=== PATIENT | female | born 1945 | race Two or more races ===

== ENCOUNTER 2020-05-25 09:09 | Inpatient (IN) | payer OTHER ==
[~2020-05-25] VITALS: Ht 160 cm; Wt 90.5 kg
[2020-05-25] MEDS ORDERED: METOPROLOL TARTRATE 25 MG TAB PO ONE (10:00)
[2020-05-25 10:11] LABS: Basophils # (auto) 0.1 10 ^3/uL (0-0.2); Basophils % (auto) 0.9 % (0.0-2.0); Eosinophils # (auto) 0.1 10 ^3/uL (0-0.8); Eosinophils % (auto) 1.4 % (0.0-7.0); Hematocrit 42.4 % (36.0-46.0); Hemoglobin 14.4 g/dL (12.2-16.2); Lymphocytes % (auto) 15.5 % (10.0-50.0); Mean Corpuscular Hemoglobin 33.1 pg (28.0-32.0); Mean Corpuscular Hgb Conc. 33.9 g/dL (32.0-36.0); Mean Corpuscular Volume 97.6 fL (80.0-100.0); Monocytes # (auto) 0.5 10 ^3/uL (0-1.3); Monocytes % (auto) 8.3 % (0.0-12.0); Neutrophils # (auto) 4.6 10 ^3/uL (1.6-8.6); Neutrophils % (auto) 73.9 % (37.0-80.0); Nucleated Red Blood Cells % 0.2 %; Platelet Count (auto) 285 10^3/uL (140-450); Red Blood Cells 4.34 10^6/uL (4.0-5.20); Red Cell Distribution Width 15.4 % (11.8-14.3); White Blood Cell 6.3 10^3/uL (4.4-10.8)
[2020-05-25 10:34] LABS: Urine Bacteria FEW /hpf (None Seen); Urine Blood Negative /uL (Negative); Urine Specific Gravity 1.005 (1.001-1.035); Urine WBC <1 /hpf (0 - 5)
[2020-05-25 10:35] LABS: INR 1.07 (0.9-1.15); Partial Thromboplastin Time 29.5 sec (23.0-31.2)
[2020-05-25 10:41] LABS: Alanine Aminotransferase 25 U/L (13-56); Albumin 3.8 g/dL (3.4-5.0); Blood Urea Nitrogen 24 mg/dL (7-18); Calcium 9.6 mg/dL (8.5-10.1); Carbon Dioxide 25 mmol/L (21-32); Glucose 137 mg/dL (74-106)
[2020-05-25 10:58] LABS: Alkaline Phosphatase 70 U/L (45-117); Anion Gap 7 (5-15); Aspartate Aminotransferase 21 U/L (15-37); BUN/Creatinine Ratio 22.4; Bilirubin, Total 0.5 mg/dL (0.2-1.0); Chloride 108 mmol/L (98-107); GFR African American 64 mL/min; GFR Non-African American 53 mL/min; Potassium 4.2 mmol/L (3.5-5.1); Sodium 140 mmol/L (136-145); Total Protein 7.3 g/dL (6.4-8.2)
[2020-05-25] MEDS ORDERED: AMIODARONE HCL 150 MG in D5W 5% 100 ML IV ONE (11:15)
[2020-05-25] MEDS ORDERED: AMIODARONE 450mg/250ml AE 250 ML IV SCH (11:15)
[2020-05-25] MEDS ORDERED: AMIODARONE HCL (50 MG/ ML) 3 ML VIAL IV ONE (11:47)
[2020-05-25] MEDS ORDERED: HYDROcodone-ACET 5/325MG TAB PO PRN (13:00)
[2020-05-25] MEDS ORDERED: ONDANSETRON HCL 4 MG/2 ML VIAL IV PRN (13:00)
[2020-05-25] MEDS ORDERED: NITROGLYCERIN 0.4 MG SL TAB SL PRN (13:00)
[2020-05-25] MEDS ORDERED: DEXTROSE (50%) 50ML SYRG IV PRN (13:00)
[2020-05-25] MEDS ORDERED: MORPHINE SULF INJ 2 MG/ML SYRINGE 1ML IV PRN ×2 (13:00)
[2020-05-25] MEDS ORDERED: INSUINJ37 SC (14:23)
[2020-05-25] MEDS ORDERED: CYAN1TAB11 PO (14:23)
[2020-05-25] MEDS ORDERED: CHOL20007 PO (14:23)
[2020-05-25] MEDS ORDERED: HYDR-4188 PO (14:23)
[2020-05-25] MEDS ORDERED: MAGN400C3 PO (14:23)
[2020-05-25] MEDS ORDERED: APIX5TAB PO (14:23)
[2020-05-25] MEDS ORDERED: PROBTAB12 PO (14:23)
[2020-05-25] MEDS ORDERED: [UNRECOGNIZED DRUG - CODE] SC (14:23)
[2020-05-25] MEDS ORDERED: GLIP10TA9 PO (14:23)
[2020-05-25] MEDS ORDERED: FURO40TA4 PO (14:23)
[2020-05-25] MEDS ORDERED: CALC-386 PO (14:23)
[2020-05-25] MEDS ORDERED: FOLI1TAB6 PO (14:23)
[2020-05-25] MEDS ORDERED: DIGO0.12 PO (14:23)
[2020-05-25] MEDS ORDERED: NIAC500T71 PO (14:23)
[2020-05-25] MEDS ORDERED: LOVA10TA54 PO (14:23)
[2020-05-25] MEDS ORDERED: CARV6.2551 PO (14:23)
[2020-05-25] MEDS ORDERED: POTA-180 PO (14:23)
[2020-05-25] MEDS ORDERED: METH2.5T PO (14:23)
[2020-05-25] MEDS ORDERED: ENAL5TAB10 PO (14:23)
[2020-05-25] MEDS: ACCU-CHEK COMFORT CURVE STRIP VI SCH ×2 (17:19→21:44)
[2020-05-25] MEDS: InsuLIN REG 1unit/0.01ml Soln (100units/ml) SC SCH ×2 (17:44→21:45)
[2020-05-25] MEDS: CARVEDILOL 3.125 MG TAB PO SCH (21:43)
[2020-05-25] MEDS: ATORVASTATIN 20 MG TAB PO SCH (21:44)
[2020-05-25] MEDS: APIXABAN 5 MG TAB PO SCH (21:44)
[2020-05-25] MEDS ORDERED: CARVEDILOL 3.125 MG TAB PO SCH (22:00)
[2020-05-26] VITALS (9 sets, daily range): BP systolic 100–122; BP diastolic 56–75
--- NOTE | 2020-05-26 01:00 | NUR ---
Telemetry admit from ER SHA CERNA admitted to Telemetry unit after SBAR received. Patient oriented to Faby Barber RN primary RN, unit, room, bed, and unit policies regarding patient care and visiting hours. Patient now on continuous telemetry monitoring, tele box # and telemetry reading on arrival to unit is SR. Patient weighed by bedscale and encouraged to call if they need something. All questions and concerns addressed, patient verbalized understanding, will continue to monitor Note: []
[2020-05-26] MEDS: ACETAMINOPHEN 500 MG TAB PO PRN ×2 (06:00→17:13)
[2020-05-26] MEDS: ACCU-CHEK COMFORT CURVE STRIP VI SCH ×4 (07:03→21:31)
[2020-05-26] MEDS: InsuLIN REG 1unit/0.01ml Soln (100units/ml) SC SCH ×4 (07:03→21:40)
[2020-05-26] MEDS: APIXABAN 5 MG TAB PO SCH ×2 (09:52→21:31)
[2020-05-26] MEDS: CARVEDILOL 3.125 MG TAB PO SCH ×2 (09:52→21:36)
[2020-05-26] MEDS: ENALAPRIL MALEATE 2.5 MG TAB PO SCH (09:53)
[2020-05-26] MEDS: FAMOTIDINE 20 MG TAB PO SCH (09:53)
--- NOTE | 2020-05-26 13:08 | NUR ---
REPORT GIVEN TO JOE PASTOR TO ASSUME CARE.
--- NOTE | 2020-05-26 14:50 | NUR ---
assessment Patient is a 74 year old female who is alert and oriented. Patients cognitive abilities are intact. Prior to admission patient lived home with her and functioned independently. Patient informed me she is able to care for her own ADLs. Per patient she will return home to her prior living arrangements post discharge and family will transport her home. Patient has a fww, wheelchair, crutches and shower chair for home use, but does not need to use them. Patients PCP is Dr Ortiz. Patient has a consult for [facility] information for her . 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 I also referred her to [facility] for the [place] aid and assist program. Patient herself has no post discharge needs identified. I informed patient she has a right to speak to a long term care social worker regarding all care. I informed patient she has a right to participate in any and all discharge planning. Patient has a POA and advanced directive. Patient verbalized understanding and agreed to discharge plan. Addendum: 05/26/20 at 1455 by Jana BRANCH Amended: Links added.
--- NOTE | 2020-05-26 16:56 | NUR ---
D/C Planning Per social service consult for home health safety evaluation and walker. Per SW II patient has a walker at home. Faxed clinical information to [facility]. Per Heide with [facility] patient has been accepted and service to start within 24-48hrs upon d/c day.
[2020-05-26] MEDS: ATORVASTATIN 20 MG TAB PO SCH (21:31)
[2020-05-26] MEDS: AMIODARONE HCL 200 MG TAB PO SCH (21:35)
[2020-05-27 05:00] VITALS: BP 108/59
--- NOTE | 2020-05-27 05:12 | NUR ---
Patient assessment Patient states she feels a little off. Like her blood sugar is low. Performed an acucheck reading, per patients request. blood sugar was 127. blood pressure was 109/59 Heart rate was 107. Oxygen saturation was 94% on room air. Patient states she feels a lot better. Call light with in reach, Will continue to monitor.
[2020-05-27] MEDS: ACCU-CHEK COMFORT CURVE STRIP VI SCH ×2 (06:18→11:54)
[2020-05-27] MEDS: InsuLIN REG 1unit/0.01ml Soln (100units/ml) SC SCH ×2 (06:22→11:54)
--- NOTE | 2020-05-27 07:21 | NUR ---
Closing note Endorsed care to day shift DARBY Moreno. no sob or distress noted.
--- NOTE | 2020-05-27 07:30 | NUR ---
Opening Shift Note Assumed patient care from NOC RN. Patient currently sitting up in bed for breakfast. No signs of distress at this time. Patient is AOx4, denies chest pain and shortness of breath. Respirations even and unlabored. Will continue to monitor q1hr and PRN-safety precautions are in place.
[2020-05-27 08:54] VITALS: BP 118/69
[2020-05-27] MEDS ORDERED: AMIO200T4 PO ×2 (09:20→10:34)
--- NOTE | 2020-05-27 09:48 | NUR ---
Called Left message for Dr. Girard regarding orders for cardiology consult.
--- NOTE | 2020-05-27 09:59 | NUR ---
Called Received call from Dr. Girard regarding patient discharge status. Per Dr. Girard cancel cardiology consult at this time, patient to be discharged with Amiodarone PO. Patient to follow up outpatient with own bend sorter regarding continuing Digoxin.
[2020-05-27] MEDS: FAMOTIDINE 20 MG TAB PO SCH (10:10)
[2020-05-27] MEDS: AMIODARONE HCL 200 MG TAB PO SCH (10:10)
[2020-05-27] MEDS: APIXABAN 5 MG TAB PO SCH (10:10)
[2020-05-27] MEDS: CARVEDILOL 3.125 MG TAB PO SCH (10:11)
[2020-05-27] MEDS: ENALAPRIL MALEATE 2.5 MG TAB PO SCH (10:12)
--- NOTE | 2020-05-27 10:15 | NUR ---
[facility] Per [facility], home health to start on discharge.
[2020-05-27 10:44] VITALS: BP 118/69
--- NOTE | 2020-05-27 11:40 | NUR ---
Patient treatment manager Per patient, primary treatment manager is Dr. Mckeon. Called Dr. Mckeon office for outpatient follow up appointment (per Dr. Girard), per receptionist secretary, patient needs to obtain referral from Dr. Ortiz to schedule earlier appointment with Dr. Mckeon- patient states "I have an appointment with Dr. Mckeon in June."
[2020-05-27 13:00] VITALS: BP 118/71
--- NOTE | 2020-05-27 13:12 | NUR ---
at Station Dr. Girard at station. Per Dr. Girard, continue with discharge at this time.
--- NOTE | 2020-05-27 13:50 | NUR ---
Discharge Discharge instructions given as ordered. Encourage to follow up with PMD as instructed. All questions and concerns addressed. Patient verbalized understanding. Medication reconciliation form completed and copy given to patient. IV removed with catheter intact, pressure dressing applied. Telemetry unit returned to ICU. Patient taken to vehicle via wheelchair with all personal belongings, accompanied by staff and family member. No distress noted at time of departure. Patient provided with discharge instructions. Patient notified of follow up with primary doctor (Dr. Ortiz) and field crop grower, Dr. Mckeon. Patient verbalized understanding.
== END 2020-05-27 13:50 | disposition home health service (06) | DRG 308 ==
LOC: ER 09:09 → TELE 09:10 → TELE-WESTW 23:47
PROVIDERS: ADMIT Nurse Practitioner Acute Care; ATTEND Internal Medicine
DX: I48.91 Unspecified atrial fibrillation (principal); I50.43 Acute on chronic combined systolic (congestive) and diastolic (congestive) heart failure; I13.0 Hypertensive heart and chronic kidney disease with heart failure and stage 1 through stage 4 chronic kidney disease, or unspecified chronic kidney disease; M06.9 Rheumatoid arthritis, unspecified; E66.9 Obesity, unspecified; N18.30 Chronic kidney disease, stage 3 unspecified; E11.22 Type 2 diabetes mellitus with diabetic chronic kidney disease; E78.5 Hyperlipidemia, unspecified; J30.2 Other seasonal allergic rhinitis; Z79.01 Long term (current) use of anticoagulants; Z79.4 Long term (current) use of insulin; Z68.34 Body mass index [BMI] 34.0-34.9, adult
CPT/HCPCS: 36415; 70450; 71045; 80053; 81001; 82962; 83036; 83735; 83880; 84443; 84484; 85025; 85610; 85730; 93005; G0378; J1815; J7060

== ENCOUNTER 2020-07-20 10:03 | Emergency (ER) | payer OTHER ==
[~2020-07-20] VITALS: Ht 157.5 cm; Wt 88.9 kg
[~2020-07-20 10:03] MED LIST: AMIO200T4 PO; APIX5TAB PO; CALC-386 PO; CARV6.2551 PO; CHOL20007 PO; CYAN1TAB11 PO; DIGO0.12 PO; ENAL5TAB10 PO; FOLI1TAB6 PO; FURO40TA4 PO; GLIP10TA9 PO; HYDR-4188 PO; INSUINJ37 SC; LOVA10TA54 PO; MAGN400C3 PO; METH2.5T PO; NIAC500T71 PO; POTA-180 PO; PROBTAB12 PO; [UNRECOGNIZED DRUG - CODE] SC
[2020-07-20 10:30] VITALS: BP 110/49
[2020-07-20 11:50] LABS: Basophils # (auto) 0 10 ^3/uL (0-0.2); Basophils % (auto) 0.7 % (0.0-2.0); Eosinophils # (auto) 0.1 10 ^3/uL (0-0.8); Hematocrit 37.4 % (36.0-46.0); Hemoglobin 12.6 g/dL (12.2-16.2); Lymphocytes # (auto) 0.7 10 ^3/uL (0.4-5.4); Lymphocytes % (auto) 12.6 % (10.0-50.0); Mean Corpuscular Hemoglobin 33.7 pg (28.0-32.0); Mean Corpuscular Hgb Conc. 33.6 g/dL (32.0-36.0); Mean Corpuscular Volume 100.2 fL (80.0-100.0); Monocytes # (auto) 0.3 10 ^3/uL (0-1.3); Monocytes % (auto) 6.2 % (0.0-12.0); Neutrophils # (auto) 4.3 10 ^3/uL (1.6-8.6); Neutrophils % (auto) 78.5 % (37.0-80.0); Platelet Count (auto) 213 10^3/uL (140-450); Red Blood Cells 3.73 10^6/uL (4.0-5.20); Red Cell Distribution Width 15.7 % (11.8-14.3); White Blood Cell 5.4 10^3/uL (4.4-10.8)
[2020-07-20 11:57] LABS: Albumin 3.6 g/dL (3.4-5.0); Calcium 9.1 mg/dL (8.5-10.1); Magnesium 2.3 mg/dL (1.6-2.6); Potassium 3.9 mmol/L (3.5-5.1)
[2020-07-20 12:01] LABS: BUN/Creatinine Ratio 23.8; Bilirubin, Total 0.7 mg/dL (0.2-1.0); Total Protein 7.1 g/dL (6.4-8.2)
[2020-07-20 15:56] LABS: Urine Bacteria NONE SEEN /hpf (None Seen); Urine Blood Negative /uL (Negative); Urine Specific Gravity 1.004 (1.001-1.035); Urine WBC <1 /hpf (0 - 5)
== END 2020-07-20 15:17 | disposition home or self-care (01) ==
LOC: ER 10:03
DX: R10.11 Right upper quadrant pain (principal); I11.0 Hypertensive heart disease with heart failure; I50.9 Heart failure, unspecified; E11.9 Type 2 diabetes mellitus without complications; E78.5 Hyperlipidemia, unspecified; Z90.49 Acquired absence of other specified parts of digestive tract; Z79.899 Other long term (current) drug therapy
CPT/HCPCS: 36415; 74018; 74176; 80053; 81001; 83605; 83690; 83735; 84484; 85025; 93005

== ENCOUNTER 2022-10-29 10:16 | Emergency (ER) | payer OTHER ==
[~2022-10-29] VITALS: Ht 160 cm; Wt 94.1 kg
[2022-10-29 10:45] LABS: Basophils # (auto) 0.1 10 ^3/uL (0-0.2); Basophils % (auto) 1.2 % (0.0-2.0); Eosinophils # (auto) 0.1 10 ^3/uL (0-0.8); Eosinophils % (auto) 1.4 % (0.0-7.0); Hematocrit 39.1 % (36.0-46.0); Hemoglobin 13.1 g/dL (12.2-16.2); Lymphocytes # (auto) 0.5 10 ^3/uL (0.4-5.4); Lymphocytes % (auto) 10.8 % (10.0-50.0); Mean Corpuscular Hemoglobin 32.9 pg (28.0-32.0); Mean Corpuscular Hgb Conc. 33.5 g/dL (32.0-36.0); Mean Corpuscular Volume 98.1 fL (80.0-100.0); Monocytes # (auto) 0.4 10 ^3/uL (0-1.3); Monocytes % (auto) 7.6 % (0.0-12.0); Neutrophils # (auto) 3.8 10 ^3/uL (1.6-8.6); Nucleated Red Blood Cells % 0.1 %; Red Blood Cells 3.98 10^6/uL (4.0-5.20); Red Cell Distribution Width 15.3 % (11.8-14.3); White Blood Cell 4.8 10^3/uL (4.4-10.8)
[2022-10-29 11:07] LABS: Albumin 3.7 g/dL (3.4-5.0); Calcium 9.1 mg/dL (8.5-10.1)
[2022-10-29 11:11] LABS: BUN/Creatinine Ratio 24.4 (10.0-20.0); Bilirubin, Total 0.5 mg/dL (0.2-1.0); Total Protein 6.2 g/dL (6.4-8.2)
[2022-10-29] MEDS ORDERED: FUROSEMIDE 40 MG/4 ML VIAL IV ONE (12:45)
[2022-10-29 14:34] LABS: Urine Bacteria NONE SEEN /hpf (None Seen); Urine Blood TRACE /uL (Negative); Urine Specific Gravity 1.014 (1.001-1.035); Urine WBC 8 /hpf (0 - 5)
[2022-10-29 17:06] VITALS: BP 121/81
[2022-10-29] MEDS ORDERED: cefTRIAXone SOD 1,000 MG VL IM ONE (17:45)
[2022-10-29] MEDS ORDERED: CEPH500T PO (18:18)
== END 2022-10-29 19:15 | disposition home or self-care (01) ==
LOC: ER 10:16
DX: N39.0 Urinary tract infection, site not specified (principal); Z88.6 Allergy status to analgesic agent
CPT/HCPCS: 36415; 71045; 80053; 81001; 83880; 84484; 85025; 93005; 96372; 96374; 99285; J0696; J1940

== ENCOUNTER 2023-12-02 09:09 | Emergency (ER) | payer OTHER ==
[~2023-12-02] VITALS: Ht 160 cm; Wt 93.5 kg
[~2023-12-02 09:09] MED LIST changes: +AMIO200T13 PO; -AMIO200T4 PO; +CEPH500T PO; -ENAL5TAB10 PO; +ENAL5TAB22 PO; +FOLI-119 PO; -FOLI1TAB6 PO; -HYDR-4188 PO; +HYDR-4491 PO
[2023-12-02 09:59] VITALS: BP 132/76; PULSE 93; RESP 18; TEMP 98.7; O2SAT 96
[2023-12-02] MEDS ORDERED: LIDO5CRE14 EX (10:36)
[2023-12-02] MEDS ORDERED: ACET500T58 PO (10:36)
[2023-12-02] MEDS: ACETAMINOPHEN 500 MG TAB PO ONE (10:54)
[2023-12-02] MEDS: LIDOCAINE 5% TOPICAL PATCH TOP ONE (10:54)
== END 2023-12-02 11:02 | disposition home or self-care (01) ==
LOC: ER 09:09
DX: M23.92 Unspecified internal derangement of left knee (principal); I11.0 Hypertensive heart disease with heart failure; I50.9 Heart failure, unspecified; E11.9 Type 2 diabetes mellitus without complications; E78.5 Hyperlipidemia, unspecified; Z90.49 Acquired absence of other specified parts of digestive tract; Z79.899 Other long term (current) drug therapy; Z88.6 Allergy status to analgesic agent
CPT/HCPCS: 73562

== ENCOUNTER 2024-12-11 08:00 | Emergency (ER) | payer OTHER ==
[~2024-12-11] VITALS: Ht 157.5 cm; Wt 75.2 kg
[~2024-12-11 08:00] MED LIST changes: +ACET500T58 PO; +LIDO5CRE14 EX
[2024-12-11 08:10] VITALS: O2SAT 100
--- NOTE | 2024-12-11 08:14 | ED.PDOC ---
History of Present Illness HPI Comments 79-year-old female presents to the ER with prior history of CHF, high lipids, DM, hypertension, AFib; surgical history of cholecystectomy. Patient states on having dizziness/SOB for the past three days.. Was on having BS irregularity for the past three days as well. BS in triage 211. Denies chills, fever, N/V/D, CP. No other associated symptoms, modifiers, recent injuries or sick contacts present at this time. Chief Complaint: Shortness of Breath Time Seen by MD: 08:05 Primary Care Provider: MELISA Reviewed Notes: Nurses Notes, Medications, Allergies Allergies: Coded Allergies: Morphine (Verified Allergy, Unknown, 10/29/22) Oxycodone (Verified Allergy, Unknown, 10/29/22) Uncoded Allergies: SEASONAL (Allergy, Unknown, 05/25/20) Home Meds Active Scripts Lidocaine (Anorectal) (Lidocaine 5%) 5 % Cre, 5 % EX QID for 10 Days, #60 GRAMS 0 Refills Prov:MANDY MCDONALD PAPER STACKER 12/02/23 Acetaminophen (Acetaminophen) 500 Mg Tab, 500 MG PO QIDP for 10 Days, #40 TAB 0 Refills Prov:MANDY MCDONALD PAPER STACKER 12/02/23 Cephalexin Monohydrate (Cephalexin) 500 Mg Tab, 1 TAB PO QID, #20 TAB Prov:JAVIER MCCANN MD 10/29/22 Amiodarone HCl (Amiodarone HCl) 200 Mg Tab, 200 MG PO Q12HR, #60 TAB take 2 tabs (400mg) twice a day for first 5 days then take 1 tab 200mg twice a day Prov:LUZ MARIA WEISS MD 05/27/20 Reported Medications Apixaban Base (ELIQUIS) 5 Mg Tab, 5 MG PO BID, TAB 05/25/20 Calcium & Phosphorus W/ Vitami (CALCIUM) Tab, 1 TAB PO DAILY, TAB 05/25/20 Cyanocobalamin (Vitamin B12) Unknown Strength Tab, PO DAILY, TAB 05/25/20 Cholecalciferol (VITAMIN D3) Unknown Strength Tab, PO DAILY, #30 TAB 5 Refills 05/25/20 Probiotic Product (PROBIOTIC) Tab, 1 TAB PO DAILY, TAB 05/25/20 Folic Acid (Folic Acid) Unknown Strength Tab, PO DAILY, MG 05/25/20 Magnesium Oxide (Mg Supplement (MAGNESIUM) Unknown Strength Cap, PO DAILY, CAP 05/25/20 Niacinamide (NIACIN) Unknown Strength Tab, PO DAILY, TAB 05/25/20 Abatacept Injection (Orencia) Unknown Strength Inj, SC QWEEKLY, INJ 05/25/20 Hydroxychloroquine Sulfate (PLAQUENIL) 200 Mg Tab, 1 TAB PO DAILY, #180 TAB 3 Refills 05/25/20 Glipizide (Glipizide) 10 Mg Tab, 10 MG PO DAILY, MG 05/25/20 Digoxin (Digoxin) 125 Mcg Tab, 125 MCG PO DAILY, TAB 05/25/20 Enalapril Maleate (Enalapril Maleate) 5 Mg Tab, 1 TAB PO DAILY, #30 TAB 5 Refills 05/25/20 Insulin Glargine (Lantus Solostar) 100 Unit/Ml Inj, 14 UNITS SC QPM, INJ 05/25/20 Carvedilol (Carvedilol) 6.25 Mg Tab, 6.25 MG PO BID, MG 05/25/20 Methotrexate (Methotrexate) 2.5 Mg Tab, 8 TAB PO QWEEKLY, MG 05/25/20 Potassium Chloride (Potassium Chloride ER) 20 Meq Tab, 20 MEQ PO DAILY, TAB 05/25/20 Lovastatin (Lovastatin) 10 Mg Tab, 10 MG PO HS, TAB 05/25/20 Furosemide (Furosemide) 40 Mg Tab, 40 MG PO DAILY 05/25/20 Information Source: Patient Mode of Arrival: Ambulatory Severity: Moderate Timing: Days Duration: Since onset, Days Prehospital treatment: None Past Medical History PAST MEDICAL HISTORY: AFIB, CHF, DM, High Lipids, HTN Surgical History: Cholecystectomy HAZMAT CDL A DRIVER History: No Pertinent HAZMAT CDL A DRIVER History Family History Family History: Reviewed,noncontributory to illness, Unknown Social History Smoker: Non-Smoker Alcohol: Denies ETOH Use Drugs: Denies Drug Use Lives In: Home Constitutional: denies: chills, diaphoresis, fatigue, fever, malaise, sweats, weakness, others EENTM: denies: blurred vision, double vision, ear bleeding, ear discharge, ear drainage, ear pain, ear ringing, eye pain, eye redness, hearing loss, mouth pain, mouth swelling, nasal discharge, nose bleeding, nose congestion, nose pain, photophobia, tearing, throat pain, throat swelling, voice changes, others Respiratory: reports: shortness of breath; denies: cough, hemoptysis, orthopnea, SOB at rest, SOB with excertion, stridor, wheezing, others Cardiovascular: denies: chest pain, dizzy spells, diaphoresis, Dyspnea on exertion, edema, irregular heart beat, left arm pain, lightheadedness, palpitations, PND, syncope, others Gastrointestinal: denies: abdomen distended, abdominal pain, blood streaked bowels, constipated, diarrhea, dysphagia, difficulty swallowing, hematemesis, melena, nausea, poor appetite, poor fluid intake, rectal bleeding, rectal pain, vomiting, others Genitourinary: denies: abnormal vagina bleeding, burning, dyspareunia, dysuria, flank pain, frequency, hematuria, incontinence, pain, , vagina discharge, urgency, others Neurological: reports: dizziness; denies: fainting, headache, left sided numbness, left sided weakness, numbness, paresthesia, pre-existing deficit, right sided numbness, right sided weakness, seizure, speech problems, tingling, tremors, weakness, others Musculoskeletal: denies: back pain, gout, joint pain, joint swelling, muscle pain, muscle stiffness, neck pain, others Integumetry: denies: bruises, change in color, change in hair/nails, dryness, laceration, lesions, lumps, rash, wounds, others Allergic/Immunocompromised: denies: Difficulty Healing, Frequent Infections, Hives, Itching, others Hematologic/Lymphatic: denies: anemia, blood clots, easy bleeding, easy bruising, swollen glands, others Endocrine: denies: excessive hunger, excessive sweating, excessive thirst, excessive urination, flushing, intolerance to cold, intolerance to heat, unexplained weight gain, unexplained weight loss, others Psychiatric: denies: anxiety, bipolar disorder, depression, hopeless, panic disorder, schizophrenia, sleepless, suicidal, others All Other Systems: Reviewed and Negative Physical Exam General Appearance: No Apparent Distress, Normal HEENT: Normal ENT Inspection, Pharynx Normal, TMs Normal Neck: Full Range of Motion, Non-Tender, Normal, Normal Inspection Respiratory: Chest Non-Tender, Lungs Clear, No Accessory Muscle Use, No Respiratory Distress, Normal Breath Sounds Cardiovascular: No Edema, No JVD, No Murmur, No Gallop, Normal Peripheral Pulses, Regular Rate/Rhythm Breast Exam: Deferred Gastrointestinal: No Organomegaly, Non Tender, No Pulsatile Mass, Normal Bowel Sounds, Soft Genitalia: Deferred Pelvic: Deferred Rectal: Deferred Extremities: No calf tenderness, Normal capillary refill, Normal inspection, Normal range of motion, Non-tender, No pedal edema Musculoskeletal : Apperance: Normal Neurologic: Alert, publicity director II-XII nml as Tested, No Motor Deficits, Normal Affect, Normal Mood, No Sensory Deficits Cerebellar Function: Normal Reflexes: Normal Skin: Dry, Normal Color, Warm Lymphatic: No Adenopathy Was a procedure done? Was a procedure done?: No Differential Dx Considerations may include: Pneumonia, CHF, COPD X-Ray, Labs, Meds, VS Vital Signs Date Time Temp Pulse Resp B/P (MAP) Pulse Ox O2 Delivery O2 Flow Rate FiO2 12/11/24 10:04 98.7 60 16 132/43 (72) 97 98.7 12/11/24 08:18 100 Room Air* 0 21 12/11/24 08:11 66 12/11/24 08:10 98.2 69 18 130/57 (81) 100 98.2 12/11/24 08:10 100 Room Air* 0 21 12/11/24 08:10 98.2 69 18 130/57 (81) 100 98.2 Lab Test 12/11/24 11:53 12/11/24 09:37 12/11/24 08:30 12/11/24 08:08 Range/Units Troponin I High Sensitivity 12 12 14 </=34 ng/L White Blood Count 6.9 4.4-10.8 10^3/uL Red Blood Count 3.56 L 4.0-5.20 10^6/uL Hemoglobin 11.9 L 12.2-16.2 g/dL Hematocrit 35.8 L 36.0-46.0 % Mean Corpuscular Volume 100.5 H 80.0-100.0 fL Mean Corpuscular Hemoglobin 33.5 H 28.0-32.0 pg Mean Corpuscular Hemoglobin Concent 33.3 32.0-36.0 g/dL Red Cell Distribution Width 15.5 H 11.8-14.3 % Platelet Count 196 140-450 10^3/uL Mean Platelet Volume 9.3 6.9-10.8 fL Neutrophils (%) (Auto) 83.1 H 37.0-80.0 % Lymphocytes (%) (Auto) 7.4 L 10.0-50.0 % Monocytes (%) (Auto) 7.8 0.0-12.0 % Eosinophils (%) (Auto) 1.4 0.0-7.0 % Basophils (%) (Auto) 0.3 0.0-2.0 % Neutrophils # (Auto) 5.8 1.6-8.6 10 ^3/uL Lymphocytes # (Auto) 0.5 0.4-5.4 10 ^3/uL Monocytes # (Auto) 0.5 0-1.3 10 ^3/uL Eosinophils # (Auto) 0.1 0-0.8 10 ^3/uL Basophils # (Auto) 0 0-0.2 10 ^3/uL Nucleated Red Blood Cells 0.0 % Sodium Level 140 136-145 mmol/L Potassium Level 3.9 3.5-5.1 mmol/L Chloride Level 105 98-107 mmol/L Carbon Dioxide Level 26 20-31 mmol/L Anion Gap 9 5-15 Blood Urea Nitrogen 23 9-23 mg/dL Creatinine 0.84 0.550-1.02 mg/dL Glomerular Filtration Rate Calc 70 >90 mL/min BUN/Creatinine Ratio 27.4 H 10.0-20.0 Serum Glucose 250 H 74-106 mg/dL Calcium Level 9.4 8.7-10.4 mg/dL B-Type Natriuretic Peptide 126.80 0-100 pg/mL Urine Color Yellow Yellow Urine Clarity Clear Clear Urine pH 5.5 5.0-9.0 Urine Specific [place] 1.027 1.001-1.035 Urine Protein Trace H Negative Urine Ketones Negative Negative Urine Blood Negative Negative /uL Urine Nitrite Negative Negative Urine Bilirubin Negative Negative Urine Urobilinogen 2 H Negative mg/dL Urine Leukocyte Esterase 2+ Negative /uL Urine RBC 1 0 - 4 /hpf Urine Microscopic WBC < 1 0-5 /HPF Urine Squamous Epithelial Cells None seen <5 /hpf Urine Bacteria None seen None Seen /hpf Urine Glucose 2+ H Normal mg/dL [facility] [id number] [place] [id number] Ph: [phone] DIAGNOSTIC IMAGING Diagnostic Imaging Report : [id number] Signed PATIENT: SHA CERNA EACCT: [id number] UNIT: [id number] : 1945 LOC: ER ROOM / BED: / AGE / SEX: 79 / F ADM STATUS: REG ER SERVICE 08 ORDERING PHYSICIAN: EVAN MELGAR MD PROCEDURE(s): CXRP - CHEST PORTABLE REASON: sob ORDER NUMBER(s): [id number], ACCESSION NUMBER(s): [id number] INDICATION: sob TECHNIQUE: XY CHEST PORTABLE COMPARISON: XY CHEST PORTABLE on DOS: 10/29/22, CHEST PORTABLE on DOS: 05/25/20, XY CHEST PORTABLE on DOS: 10/29/22 FINDINGS: Mild cardiomegaly. Cardiac silhouette is not enlarged. Bones are unremarkable. IMPRESSION: 1. Mild cardiomegaly. Time of 1ST Reevaluation: 08:35 Reevaluation 1ST: Unchanged Patient Education/Counseling: Diagnosis, Treatment, Prognosis Family Education/Counseling: No Family Present Departure 1 Departure Time of Disposition: 12:42 (Patient's workup is benign. Patient's chest x-ray labs are benign. Patient is feeling well and like to go home.) Impression: Primary Impression: Shortness of breath Disposition: 01 HOME / SELF CARE / HOMELESS Condition: Stable Additional Instructions: Your workup today was benign. You can take Tylenol or Motrin as needed for pain. You should follow up with your regular doctor within 1 week. You should stay well rested and well hydrated. If your symptoms worsen or you have any other concerns please return to the emergency room. Discharged With: Self Critical Care Note Critical Care Time?: No Stability Stability form required: No I personally scribed for EVAN MELGAR MD ([email or web address]) on 12/11/24 at 08:14. Electronically submitted by Ilya Carbajal ([email or web address]). I personally scribed for EVAN MELGAR MD ([email or web address]) on 12/11/24 at 09:32. Electronically submitted by Ilya Carbajal ([email or web address]). EVAN MELGAR MD December 11, 2024 08:14
--- NOTE | 2024-12-11 08:42 | DVH ---
INDICATION: sob TECHNIQUE: XY CHEST PORTABLE COMPARISON: XY CHEST PORTABLE on DOS: 10/29/22, CHEST PORTABLE on DOS: 05/25/20, XY CHEST PORTABLE on D OS: 10/29/22 FINDINGS: Mild cardiomegaly. Cardiac silhouette is not enlarged. Bones are unremarkable. IMPRESSION: 1. Mild cardiomegaly.
[2024-12-11 08:44] LABS: Basophils # (auto) 0 10 ^3/uL (0-0.2); Basophils % (auto) 0.3 % (0.0-2.0); Eosinophils # (auto) 0.1 10 ^3/uL (0-0.8); Eosinophils % (auto) 1.4 % (0.0-7.0); Hematocrit 35.8 % (36.0-46.0); Hemoglobin 11.9 g/dL (12.2-16.2); Lymphocytes # (auto) 0.5 10 ^3/uL (0.4-5.4); Lymphocytes % (auto) 7.4 % (10.0-50.0); Mean Corpuscular Hemoglobin 33.5 pg (28.0-32.0); Mean Corpuscular Hgb Conc. 33.3 g/dL (32.0-36.0); Mean Corpuscular Volume 100.5 fL (80.0-100.0); Monocytes # (auto) 0.5 10 ^3/uL (0-1.3); Monocytes % (auto) 7.8 % (0.0-12.0); Neutrophils # (auto) 5.8 10 ^3/uL (1.6-8.6); Neutrophils % (auto) 83.1 % (37.0-80.0); Platelet Count (auto) 196 10^3/uL (140-450); Red Blood Cells 3.56 10^6/uL (4.0-5.20); Red Cell Distribution Width 15.5 % (11.8-14.3); White Blood Cell 6.9 10^3/uL (4.4-10.8)
[2024-12-11 08:50] LABS: Anion Gap 9 (5-15); Carbon Dioxide 26 mmol/L (20-31); Chloride 105 mmol/L (98-107); Potassium 3.9 mmol/L (3.5-5.1); Sodium 140 mmol/L (136-145)
[2024-12-11 08:51] LABS: Calcium 9.4 mg/dL (8.7-10.4)
[2024-12-11 08:56] LABS: BUN/Creatinine Ratio 27.4 (10.0-20.0)
[2024-12-11 08:59] LABS: Blood Urea Nitrogen 23 mg/dL (9-23); Glucose 250 mg/dL (74-106)
[2024-12-11 09:50] LABS: Urine Bacteria None Seen /hpf (None Seen)
[2024-12-11 09:59] LABS: Urine Blood Negative /uL (Negative); Urine Clarity Clear (Clear); Urine Color Yellow (Yellow); Urine Protein, UAD TRACE (Negative); Urine Specific Gravity 1.027 (1.001-1.035); Urine Squamous Epithelial Cell None Seen /hpf (<5); Urine Urobilinogen 2 mg/dL (Negative); Urine WBC < 1 /HPF (0-5); Urine pH 5.5 (5.0-9.0)
[2024-12-11 12:46] VITALS: BP 118/49; PULSE 57; RESP 16; TEMP 97.5; O2SAT 98
--- NOTE | 2024-12-11 17:36 | ECG ---
[facility] Test Date: 2024-12-11 Test Time: 08:11:08 Pat Name: SHA CERNA Department: ED Room: Gender: F Box Cutter: KATYA : 1945 Requested By: EVAN MELGAR Order Number: [id number] Reading MD: Eber Son Measurements Intervals [place] Rate: 66 P: 0 MS: 205 QRS: -55 QRSD: 118 T: 76 QT: 367 QTc: 385 Interpretive Statements Sinus rhythm Incomplete RBBB and LAFB Electronically Signed On 12-13-2024 20:58:18 PDT by Eber Son Please click the below link to view image of tracing.
[2024-12-12] MEDS ORDERED: HYDR-4902 PO (11:32)
[2024-12-12] MEDS ORDERED: ZOFR4T PO (11:44)
== END 2024-12-11 13:01 | disposition home or self-care (01) ==
LOC: ER 08:00
DX: R06.02 Shortness of breath (principal); R42 Dizziness and giddiness; I11.0 Hypertensive heart disease with heart failure; I50.9 Heart failure, unspecified; E11.9 Type 2 diabetes mellitus without complications; I48.91 Unspecified atrial fibrillation; Z90.49 Acquired absence of other specified parts of digestive tract; Z88.5 Allergy status to narcotic agent; Z88.8 Allergy status to other drugs, medicaments and biological substances
CPT/HCPCS: 36415; 71045; 80048; 81001; 82947; 83880; 84484; 85025; 93005

== ENCOUNTER 2024-12-12 09:25 | Emergency (ER) | payer OTHER ==
[~2024-12-12] VITALS: Ht 157.5 cm; Wt 73.6 kg
[2024-12-12 10:05] VITALS: BP 98/59; PULSE 55; RESP 18; TEMP 98.2; O2SAT 97
[2024-12-12] MEDS: HYDROcodone-ACET 5/325MG TAB PO ONE (10:32)
[2024-12-12] MEDS: ONDANSETRON ODT 4 MG TAB PO ONE (10:32)
--- NOTE | 2024-12-12 10:32 | ED.PDOC ---
Ady. trauma (HPI) HPI Comments A 79 YEAR OLD FEMALE PRESENTS TO THE ED WITH COMPLAINT OF LOWER BACK PAIN AND BUTTOCK PAIN S/P FALL. PATIENT STATES SHE HAS A HISTORY OF CHRONIC LOWER BACK PAIN DUE TO PREVIOUS BONE FRACTURES IN HER SPINE, AND ACCIDENTALLY FELL 6 DAYS AGO WITH MADE HER PAIN WORSE. PATIENT REPORTS HE IS NOW EXPERIENCING LOWER BACK PAIN AND BILATERAL BUTTOCK PAIN THAT IS WORSE WITH MOVEMENT. PT REQUESTS PAIN MEDICATION AND RX. PATIENT WAS HERE IN THIS ED YESTERDAY FOR SORE IN HIS BREATH AND DIZZINESS WHERE A FULL CARDIAC WORKUP AND CHEST X-RAY WAS DONE ALL OF WHICH WAS NORMAL. PATIENT DENIES HEAD INJURY, LOC, NECK INJURY, FEVER, CHILLS, SHORTNESS OF BREATH, CHEST PAIN, ABDOMINAL PAIN, NAUSEA, VOMITING, HEADACHE, OR OTHER COMPLAINTS. NO OTHER SYMPTOMS OR MODIFYING FACTORS AT THIS TIME. PATIENT IS ALERT, ORIENTED X 4, AND HAS STEADY GAIT. Chief Complaint: Back Pain Time Seen by MD: 09:54 Primary Care Provider: MELISA Shipley notes: Nurses Notes, Medications, Allergies Allergies: Coded Allergies: Morphine (Verified Allergy, Unknown, 10/29/22) Oxycodone (Verified Allergy, Unknown, 10/29/22) Uncoded Allergies: SEASONAL (Allergy, Unknown, 05/25/20) Home Meds Active Scripts Ondansetron Odt 4MG Tab (ZOFRAN PO) 4 Mg Tb, 4 MG PO BID, #20 TAB ODT TAB-DISSOLVE IN MOUTH, THEN SWALLOW Prov:SHASTA GARCIA 12/12/24 Hydrocodone-Acetaminophen (Hydrocodone Bitartrate/AC 5-325 mg) 1 Tab Tab, 1 TAB PO BID, #10 TAB Prov:SHASTA GARCIA 12/12/24 Lidocaine (Anorectal) (Lidocaine 5%) 5 % Cre, 5 % EX QID for 10 Days, #60 GRAMS 0 Refills Prov:MANDY MCDONALD NP 12/02/23 Acetaminophen (Acetaminophen) 500 Mg Tab, 500 MG PO QIDP for 10 Days, #40 TAB 0 Refills Prov:MANDY MCDONALD NP 12/02/23 Cephalexin Monohydrate (Cephalexin) 500 Mg Tab, 1 TAB PO QID, #20 TAB Prov:JAVIER MCCANN MD 10/29/22 Amiodarone HCl (Amiodarone HCl) 200 Mg Tab, 200 MG PO Q12HR, #60 TAB take 2 tabs (400mg) twice a day for first 5 days then take 1 tab 200mg twice a day Prov:LUZ MARIA WEISS MD 05/27/20 Reported Medications Apixaban Base (ELIQUIS) 5 Mg Tab, 5 MG PO BID, TAB 05/25/20 Calcium & Phosphorus W/ Vitami (CALCIUM) Tab, 1 TAB PO DAILY, TAB 05/25/20 Cyanocobalamin (Vitamin B12) Unknown Strength Tab, PO DAILY, TAB 05/25/20 Cholecalciferol (VITAMIN D3) Unknown Strength Tab, PO DAILY, #30 TAB 5 Refills 05/25/20 Probiotic Product (PROBIOTIC) Tab, 1 TAB PO DAILY, TAB 05/25/20 Folic Acid (Folic Acid) Unknown Strength Tab, PO DAILY, MG 05/25/20 Magnesium Oxide (Mg Supplement (MAGNESIUM) Unknown Strength Cap, PO DAILY, CAP 05/25/20 Niacinamide (NIACIN) Unknown Strength Tab, PO DAILY, TAB 05/25/20 Abatacept Injection (Orencia) Unknown Strength Inj, SC QWEEKLY, INJ 05/25/20 Hydroxychloroquine Sulfate (PLAQUENIL) 200 Mg Tab, 1 TAB PO DAILY, #180 TAB 3 Refills 05/25/20 Glipizide (Glipizide) 10 Mg Tab, 10 MG PO DAILY, MG 05/25/20 Digoxin (Digoxin) 125 Mcg Tab, 125 MCG PO DAILY, TAB 05/25/20 Enalapril Maleate (Enalapril Maleate) 5 Mg Tab, 1 TAB PO DAILY, #30 TAB 5 Refills 05/25/20 Insulin Glargine (Lantus Solostar) 100 Unit/Ml Inj, 14 UNITS SC QPM, INJ 05/25/20 Carvedilol (Carvedilol) 6.25 Mg Tab, 6.25 MG PO BID, MG 05/25/20 Methotrexate (Methotrexate) 2.5 Mg Tab, 8 TAB PO QWEEKLY, MG 05/25/20 Potassium Chloride (Potassium Chloride ER) 20 Meq Tab, 20 MEQ PO DAILY, TAB 05/25/20 Lovastatin (Lovastatin) 10 Mg Tab, 10 MG PO HS, TAB 05/25/20 Furosemide (Furosemide) 40 Mg Tab, 40 MG PO DAILY 05/25/20 Information Source: Patient Mode of Arrival: Ambulatory Severity: Moderate Timing: Days Duration: Since onset, Days Prehospital treatment: None Location: Back, Other (BUTTOCK PAIN) Location of laceration: None Mechanism: Fall Associated signs and symtoms: None Past Medical History PAST MEDICAL HISTORY: AFIB, CHF, DM, High Lipids, HTN Past Medical History (Other): CHRONIC LOW BACK PAIN, HX OF LOW BACK FX. Surgical History: Cholecystectomy [employer] History: No Pertinent [employer] History Family History Family History: Reviewed,noncontributory to illness Social History Smoker: Non-Smoker Alcohol: Denies ETOH Use Drugs: Denies Drug Use Lives In: Home Constitutional: denies: chills, diaphoresis, fatigue, fever, malaise, sweats, weakness, others EENTM: denies: blurred vision, double vision, ear bleeding, ear discharge, ear drainage, ear pain, ear ringing, eye pain, eye redness, hearing loss, mouth pain, mouth swelling, nasal discharge, nose bleeding, nose congestion, nose pain, photophobia, tearing, throat pain, throat swelling, voice changes, others Respiratory: denies: cough, hemoptysis, orthopnea, SOB at rest, shortness of breath, SOB with excertion, stridor, wheezing, others Cardiovascular: denies: chest pain, dizzy spells, diaphoresis, Dyspnea on exertion, edema, irregular heart beat, left arm pain, lightheadedness, palpitations, PND, syncope, others Gastrointestinal: denies: abdomen distended, abdominal pain, blood streaked bowels, constipated, diarrhea, dysphagia, difficulty swallowing, hematemesis, melena, nausea, poor appetite, poor fluid intake, rectal bleeding, rectal pain, vomiting, others Genitourinary: denies: abnormal vagina bleeding, burning, dyspareunia, dysuria, flank pain, frequency, hematuria, incontinence, pain, , vagina discharge, urgency, others Neurological: denies: dizziness, fainting, headache, left sided numbness, left sided weakness, numbness, paresthesia, pre-existing deficit, right sided numbness, right sided weakness, seizure, speech problems, tingling, tremors, weakness, others Musculoskeletal: reports: back pain (LOWER BACK PAIN), joint pain, muscle pain, others (BILATERAL BUTTOCK PAIN); denies: gout, joint swelling, muscle stiffness, neck pain Integumetry: denies: bruises, change in color, change in hair/nails, dryness, laceration, lesions, lumps, rash, wounds, others Allergic/Immunocompromised: denies: Difficulty Healing, Frequent Infections, Hives, Itching, others Hematologic/Lymphatic: denies: anemia, blood clots, easy bleeding, easy bruising, swollen glands, others Endocrine: denies: excessive hunger, excessive sweating, excessive thirst, excessive urination, flushing, intolerance to cold, intolerance to heat, unexplained weight gain, unexplained weight loss, others Psychiatric: denies: anxiety, bipolar disorder, depression, hopeless, panic disorder, schizophrenia, sleepless, suicidal, others All Other Systems: Reviewed and Negative Physical Exam General Appearance: No Apparent Distress, Normal HEENT: Normal ENT Inspection, PERRL/EOMI, Pharynx Normal, TMs Normal Neck: Full Range of Motion, Non-Tender, Normal, Normal Inspection Respiratory: Chest Non-Tender, Lungs Clear, No Accessory Muscle Use, No Respiratory Distress, Normal Breath Sounds Cardiovascular: No Edema, No JVD, No Murmur, No Gallop, Normal Peripheral Pulses, Regular Rate/Rhythm Breast Exam: Deferred Gastrointestinal: No Organomegaly, Non Tender, No Pulsatile Mass, Normal Bowel Sounds, Soft Genitalia: Deferred Pelvic: Deferred Rectal: Deferred Extremities: Decreased range of motion, No calf tenderness, Normal capillary refill, No pedal edema, Tender (WITH HEMATOMA ON LEFT POSTERIOE BUTTOCK, NO OPEN WOUND AND DEFORMITY. ) Musculoskeletal : Location: Bilateral Extremity Location: Back Apperance: Tenderness: Moderate (TENDERNESS AND MUSCLE SPASM ON LOWER BACK, NO BONY TENDERNESS, SWELLING AND DEFORMITY. ) Neurologic: Alert, video library assistant II-XII nml as Tested, No Motor Deficits, Normal Affect, Normal Mood, No Sensory Deficits Cerebellar Function: Normal Reflexes: Normal Skin: Bruises (AND HEMATOMA ON LEFT POSTERIOR BUTTOCK, NO BONY TENDERNESS AND DEFORMITY. ), Dry, Normal Color, Warm Peripheral Pulses: 2+ carotid (R), 2+ carotid (L), 2+ dorsalis pedis (R), 2+ dorsalis pedis (L) Lymphatic: No Adenopathy Was a procedure done? Was a procedure done?: No Differential Diagnosis Multiple Trauma: Fractures, Spine Injury, Abrasions, Contusion, Hematoma, Other (LOW BACK STRAIN, DDD, PAIN MANAGEMENT) Neck Injury: N/A X-Ray, Labs, Meds, VS Vital Signs Date Time Temp Pulse Resp B/P (MAP) Pulse Ox O2 Delivery O2 Flow Rate FiO2 12/12/24 10:05 55 18 97 Room Air 12/12/24 10:05 98.2 55 18 98/59 (72) 97 98.2 12/12/24 09:30 98.2 55 18 98/59 (72) 97 98.2 Current Medications Medications (Trade) Dose Ordered Sig/Ujstin Route Start Time Stop Time Status Last Admin Acetaminophen/ Hydrocodone Bitart ([place] 5/325MG Tab) 1 tab ONCE ONCE PO 12/12/24 10:30 12/12/24 10:31 DC 12/12/24 10:32 Ondansetron HCl (Zofran Po) 4 mg ONCE ONCE PO 12/12/24 10:30 12/12/24 10:31 DC 12/12/24 10:32 CLINICAL INFORMATION: 79 years old, Female; FALL ONE WEEK AGO, HX OF CHRONIC LOW BACK PAIN DUE FRACTURE. TECHNIQUE: Axial CT images of the pelvis were obtained without IV contrast. Coronal and sagittal reformatted images were obtained, reviewed, and stored. All CT scans at this medical facility are performed using dose modulation techniques as appropriate to a performed exam including the following: Automated exposure control was utilized; adjustment of the MA and/or KV according to patient size; and use of iterative reconstruction technique. CTDIvol = 30.95 mGy DLP = 1038.28 mGy-cm COMPARISON: CT of the abdomen and pelvis dated 07/20/2020. FINDINGS: No evidence of acute fracture. Moderate joint space narrowing in both hips. Mild subchondral sclerosis. Moderate to marked sclerosis of the pubic symphysis. There is a focal complex fluid collection along the deep surface of the left gluteus ligia muscle and abutting the ischial tuberosity measuring up to 4.9 x 6.2 x 5.7 cm, likely hematoma. No other significant findings are seen. IMPRESSION: 1. No evidence of acute fracture. 2. Hematoma measuring up to 6.2 cm along the deep surface of the left gluteus ligia muscle and abutting the left ischial tuberosity. 3. Additional findings as described above. ATED BY: JEFFY THRASHER DO DICTATED DATE/TIME: 12/12/24 112 SIGNED BY: JEFFY THRASHER DO SIGNED DATE/TIME: 12/12/24 112 CC: CLINICAL INDICATION: FALL ONE WEEK AGO TECHNIQUE: CT of the lumbar spine was performed without intravenous contrast. Sagittal and coronal reformatted images are provided. All CT scans at this medical facility are performed using dose modulation techniques as appropriate to a performed exam including the following: Automated exposure control was utilized; adjustment of the MA and/or KV according to patient size; and use of iterative reconstruction technique. COMPARISON: None CT Dose: CTDI volume is 34.83 mGy. Dose-length product is 1017.97 mGy*cm FINDINGS: Is Grade 1 anterolisthesis noted at L4-L5 and L5-S1. The bones are demineralized. Age-indeterminate T11, T12, L1 and L2 mild compression deformities with less than 25% vertebral body height loss. No osseous retropulsion. Multilevel severe intervertebral disc degeneration and desiccation with vacuum phenomenon. There is mild bilateral neural foraminal s tenosis at L3-L4 and moderate to severe bilateral neural foraminal stenosis at L5-S1. Multilevel facet arthropathy. The prevertebral soft tissues are unremarkable. Paraspinal muscles are also within normal limits. IMPRESSION: 1. Age-indeterminate T11, T12, L1 and L2 mild compression deformities less than 25% vertebral body height loss. No osseous retropulsion. 2. Multilevel lumbar spondylosis. ATED BY: DAISHA MUNOZ MD DICTATED DATE/TIME: 12/12/24 1113 SIGNED BY: DAISHA MUNOZ MD SIGNED DATE/TIME: 12/12/24 111 CC: X-Ray, Labs, Meds, VS Comment EXTERNAL MEDICAL RECORDS REVIEWED: [NONE] INDEPENDENT HISTORIANS: [NONE] SOCIAL DETERMINANTS OF HEALTH: [NONE] LABS ORDERED: NONE REVIEWED AND INTERPRETED RESULTS: NONE IMAGING ORDERED: CT LS SPINE, CT PELVIS TREATMENTS ORDERED: NORCO 5/325 MG P.O., ZOFRAN 4 MG P.O. PROCEDURES PERFORMED: NONE CRITICAL CARE TIME: NONE I HAVE DISCUSSED THE PATIENT WITH THE ATTENDING PHYSICIAN DR. MELGAR AND HE AGREES WITH THE PATIENT'S PLAN OF CARE AND DISPOSITION. BASED ON HISTORY OF PRESENT ILLNESS, AND PHYSICAL EXAM, PATIENT WILL BE DISCHARGED HOME. DISCUSSED PLAN FOR DISCHARGE HOME WITH RX [NORCO 5/325 MG]. MEDICATION WARNINGS GIVEN. SHARED DECISION MAKING: PATIENT INSTRUCTED TO FOLLOW UP WITH PRIMARY CARE PROVIDER IN 1-2 DAYS FOR RE-EVALUATION OF SYMPTOMS. PATIENT VERBALIZES UNDERSTANDING TO RETURN TO ED FOR NEW OR WORSENING SYMPTOMS OR IF FOLLOW UP WITH PCP CANNOT BE OBTAINED. PATIENT FEELS COMFORTABLE GOING HOME AT THIS TIME. ALL QUESTIONS ADDRESSED AT TIME OF DISCHARGE. Images Reviewed?: Images reviewed and evaluated by me Time of 1ST Reevaluation: :46 Reevaluation 1ST: Improved Patient Education/Counseling: Diagnosis, Treatment, Need For Follow Up Family Education/Counseling: Diagnosis, Treatment, Need For Follow Up Medical Screening: No EMC Exist At This Time Departure 1 Departure Time of Disposition: :46 Impression: Primary Impression: Low back strain Qualified Codes: S39.012A - Strain of muscle, fascia and tendon of lower back, initial encounter Additional Impressions: DDD (degenerative disc disease), lumbar Qualified Codes: M51.369 - Other intervertebral disc degeneration, lumbar region without mention of lumbar back pain or lower extremity pain Hematoma of left buttock Disposition: 01 HOME / SELF CARE / HOMELESS Condition: Stable Additional Instructions: FOLLOW-UP WITH PCP IN 1 TO 2 DAYS. TAKE MEDICATIONS PRESCRIBED. RETURN TO ED FOR ANY NEW OR WORSENING SYMPTOMS. e-Prescriptions Ondansetron Odt 4MG Tab (ZOFRAN PO) 4 Mg Tb 4 MG PO BID, #20 TAB ODT TAB-DISSOLVE IN MOUTH, THEN SWALLOW Prov: SHASTA GARCIA 12/12/24 Hydrocodone-Acetaminophen (Hydrocodone Bitartrate/AC 5-325 mg) 1 Tab Tab 1 TAB PO BID, #10 TAB Prov: SHASTA GARCIA 12/12/24 Discharged With: Self, Relative Critical Care Note Critical Care Time?: No Stability Stability form required: No I personally scribed for SHASTA GARCIA ([email or web address]) on 12/12/24 at 10:31. Electronically submitted by Deejay Shahid ([email or web address]). I personally scribed for SHASTA GARCIA ([email or web address]) on 12/12/24 at 11:29. Electronically submitted by Deejay Shahid ([email or web address]). I personally scribed for SHASTA GARCIA ([email or web address]) on 12/12/24 at 11:32. Electronically submitted by Deejay Shahid ([email or web address]). SHASTA GARCIA December 12, 2024 10:31
--- NOTE | 2024-12-12 11:16 | DVH ---
CLINICAL INDICATION: FALL ONE WEEK AGO TECHNIQUE: CT of the lumbar spine was performed without intravenous contrast. Sagittal and coronal re formatted images are provided. All CT scans at this medical facility are performed using dose modula tion techniques as appropriate to a performed exam including the following: Automated exposure contro l was utilized; adjustment of the MA and/or KV according to patient size; and use of iterative recons truction technique. COMPARISON: None CT Dose: CTDI volume is 34.83 mGy. Dose-length product is 1017.97 mGy*cm FINDINGS: Is Grade 1 anterolisthesis noted at L4-L5 and L5-S1. The bones are demineralized. Age-indeterminate T 11, T12, L1 and L2 mild compression deformities with less than 25% vertebral body height loss. No oss eous retropulsion. Multilevel severe intervertebral disc degeneration and desiccation with vacuum ph enomenon. There is mild bilateral neural foraminal stenosis at L3-L4 and moderate to severe bilateral neural foraminal stenosis at L5-S1. Multilevel facet arthropathy. The prevertebral soft tissues are unremarkable. Paraspinal muscles are also within normal limits. IMPRESSION: 1. Age-indeterminate T11, T12, L1 and L2 mild compression deformities less than 25% vertebral body he ight loss. No osseous retropulsion. 2. Multilevel lumbar spondylosis.
--- NOTE | 2024-12-12 11:24 | DVH ---
CLINICAL INFORMATION: 79 years old, Female; FALL ONE WEEK AGO, HX OF CHRONIC LOW BACK PAIN DUE FRACT URE. TECHNIQUE: Axial CT images of the pelvis were obtained without IV contrast. Coronal and sagittal refo rmatted images were obtained, reviewed, and stored. All CT scans at this medical facility are perfor med using dose modulation techniques as appropriate to a performed exam including the following: Auto mated exposure control was utilized; adjustment of the MA and/or KV according to patient size; and us e of iterative reconstruction technique. CTDIvol = 30.95 mGy DLP = 1038.28 mGy-cm COMPARISON: CT of the abdomen and pelvis dated 07/20/2020. FINDINGS: No evidence of acute fracture. Moderate joint space narrowing in both hips. Mild subchondra l sclerosis. Moderate to marked sclerosis of the pubic symphysis. There is a focal complex fluid doris ection along the deep surface of the left gluteus ligia muscle and abutting the ischial tuberosity measuring up to 4.9 x 6.2 x 5.7 cm, likely hematoma. No other significant findings are seen. IMPRESSION: 1. No evidence of acute fracture. 2. Hematoma measuring up to 6.2 cm along the deep surface of the left gluteus ligia muscle and abut ting the left ischial tuberosity. 3. Additional findings as described above.
[2024-12-12] MEDS ORDERED: HYDR-4902 PO (11:32)
[2024-12-12] MEDS ORDERED: ZOFR4T PO (11:44)
== END 2024-12-12 11:43 | disposition home or self-care (01) ==
LOC: ER 09:25
DX: S39.012A Strain of muscle, fascia and tendon of lower back, initial encounter (principal); S30.0XXA Contusion of lower back and pelvis, initial encounter; M51.360 Other intervertebral disc degeneration, lumbar region with discogenic back pain only; I11.0 Hypertensive heart disease with heart failure; I50.9 Heart failure, unspecified; E11.9 Type 2 diabetes mellitus without complications; E78.5 Hyperlipidemia, unspecified; I48.91 Unspecified atrial fibrillation; Z90.49 Acquired absence of other specified parts of digestive tract; Z88.5 Allergy status to narcotic agent; W18.39XA Other fall on same level, initial encounter; Y93.89 Activity, other specified; Y92.89 Other specified places as the place of occurrence of the external cause; Y99.8 Other external cause status
CPT/HCPCS: 72131; 72192; 99284; Q0162